=== PATIENT | female | born 1995 | race Caucasian/White ===

== ENCOUNTER 2020-12-07 20:14 | Inpatient (IN) | payer OTHER ==
[~2020-12-07] VITALS: Ht 160 cm; Wt 65.7 kg
[2020-12-07 20:34] VITALS: BP 120/71
[2020-12-07] MEDS ORDERED: OXYTOCIN DRIP 30 UNITS in IV 1 EA IV PRN (21:50)
[2020-12-07] MEDS ORDERED: LIDOCAINE 1% MDV 20ML VIAL INFIL PRN (21:50)
[2020-12-07] MEDS ORDERED: PRENTAB9 PO (22:07)
[2020-12-07 22:09] LABS: HEMATOCRIT 38.5 % (36.0-47.0); HEMOGLOBIN 12.9 g/dl (12.0-15.5); MEAN CORPUSCULAR HEMOGLOBIN 28.4 pg (27.0-33.0); MEAN CORPUSCULAR HGB CONC 33.5 g/dl (32.0-36.5); MEAN CORPUSCULAR VOLUME 84.6 fl (80.0-96.0); PLATELET COUNT, AUTOMATED 222 10^3/uL (150-450); RED BLOOD COUNT 4.55 10^6/uL (4.00-5.40); WHITE BLOOD COUNT 11.3 10^3/uL (4.0-10.0)
--- NOTE | 2020-12-07 22:11 | HPEPDOC ---
Obstetrical History & Physical General Date of Admission Dec 07, 2020 at 21:49 History of Present Illness 25 yo at 41+1 weeks gestation by LMP of [id number] c/w 10+5 week US present ed to L&D with the complaint of worsening contractions throughout today. She denies any vaginal bleeding or leakage of fluid. She endorses regular movement. She is scheduled for IOL tomorrow for late term . 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 ABDOMEN: Gravid and non-tender to touch. FETUS: Is vertex (VTX) by sterile vaginal examination (SVE), fetus is vertex (VTX) by Andrei. EXTREMITIES: No edema. Vital Signs/I&O Vital Signs Date Time Temp Pulse Resp B/P (MAP) Pulse Ox O2 Delivery O2 Flow Rate FiO2 12/07/20 20:34 98.4 78 20 120/71 (87) Laboratory Data 24H LABS Laboratory Tests 2 12/07/20 21:53: Serology Scanned Report Hepatitis B Testing Urine Culture: No Growth Pertinent Laboratoy Data Blood Type: A+ RBC Antibody Screen: Negative HIV: Negative Hepatitis B: Negative Hepatitis C: Unknown Rapid Plasma Reagin: Nonreactive Rubella: Immune Varicella: Immune Chlamydia/Gonorrhea: Negative Group B Streptococcus: Negative (Done on 21Oct2020) Quad Screen Test: Unknown Cystic Fibrosis: Negative Glucose Tolerance Test: 95 Anatomy Ultrasound Placenta Location: Anterior Normal Anatomy: Yes Placenta Previa: No Steroid Therapy Steroid Therapy: No Vaginal Examination Dilation: 2cm Effacement: 80% Station: -2 Cervical Consistency: Soft Cervical Position: Posterior Presentation: Cephalic presentation Position: Vertex (occiput) Assessment Heart Rate (FHR): 135 Variability: Moderate Accelerations: Positive Decelerations: None Tocometer Frequency: irregular Assessment/Plan Assessment 25 yo at 41+1 weeks gestation presented to L&D with the complaint of contractions. Scheduled for IOL tomorrow. Plan Admit for expectant management of early labor. Will not augment labor until nursing staff can safely do so. Apply IV fluids. Labs per L&D protocol. Regular diet. GBS negative, though swab completed >5 weeks ago. Recommend empiric treatment if risk factors become present. Patient may have epidural if desired. Anticipate . NANCY HURD DO Dec 07, 2020 22:11
[2020-12-08] VITALS (39 sets, daily range): BP systolic 70–209; BP diastolic 37–142
[2020-12-08] MEDS ORDERED: FENTANYL 2MCG/ML ROPIVACAINE 0.2% IN 0.9% NACL 100ML IVBAG As Ordered ONE (00:18)
[2020-12-08] MEDS ORDERED: ONDANSETRON 4MG/2ML VIAL As Ordered ONE (00:55)
[2020-12-08] MEDS ORDERED: LACTATED RINGER'S 1000 ML IV PRN (01:00)
[2020-12-08] MEDS ORDERED: ePHEDrine SULFATE 25 MG/5 ML(5MG/ML) SYRINGE IV PRN (01:00)
[2020-12-08] MEDS ORDERED: NALOXONE INJ 0.4MG/1ML VIAL (J2310 PER 1MG) IV PRN (01:00)
[2020-12-08] MEDS ORDERED: EPIDURAL/PCA KEYS XX PRN (01:00)
[2020-12-08] MEDS ORDERED: FENTANYL/ROPIVACAINE/NACL BAG 100 ML EPIDURAL SCH (01:00)
[2020-12-08] MEDS ORDERED: REFRIGERATOR IV KEYS XX PRN (01:00)
[2020-12-08] MEDS ORDERED: diphenhydrAMINE 50MG/ML VIAL (J1200) IV PRN (01:00)
[2020-12-08] MEDS ORDERED: ONDANSETRON 4MG/2ML VIAL IV PRN (01:00)
[2020-12-08] MEDS ORDERED: EPIDURAL COMMENT XX SCH (01:00)
[2020-12-08] MEDS ORDERED: ACETAMINOPHEN TAB 650MG DOSE (2X325MG) PO PRN (06:25)
[2020-12-08] MEDS ORDERED: ACETAMINOPHEN 500 MG TAB PO PRN (06:25)
[2020-12-08] MEDS ORDERED: PROMETHAZINE 25 MG TAB PO PRN (06:25)
[2020-12-08] MEDS ORDERED: RHOGAM 300 MCG (1500 IU) INJ (J2790) IM SCH (06:25)
[2020-12-08] MEDS ORDERED: IBUPROFEN 800 MG TAB PO PRN (06:25)
[2020-12-08] MEDS ORDERED: MEASLES,MUMPS,RUBELLA VACCINE INJ (MMR-II) (90707) SC SCH (06:25)
[2020-12-08] MEDS ORDERED: DOCUSATE SODIUM 100MG CAPSULE PO PRN (06:25)
[2020-12-08] MEDS ORDERED: IBUPROFEN 600MG TAB PO PRN (06:25)
[2020-12-08] MEDS ORDERED: DIBUCAINE 1% OINTMENT 30GM TOP PRN (06:25)
--- NOTE | 2020-12-08 06:37 | DNPDOC ---
[facility] Delivery Note Delivery Note DATE OF DELIVERY: 08Dec2020 at ~0615 PREDELIVERY DIAGNOSIS: 41+2 weeks gestation and labor POST DELIVERY DIAGNOSIS: Delivered. PROCEDURE: Spontaneous vaginal delivery WATER RESOURCE MANAGER: Dr. Jacobs ANESTHESIA: Neuraxial (epidural). ESTIMATED BLOOD LOSS: 300 mL. FINDINGS: 6 pound 5 ounce (2870 grams) female , Score 8/9 DELIVERY SUMMARY: Mike is a 25 yo who presented with painful contractions the night before her scheduled induction. She received an epidural and had pitocin augmentation. Her membranes spontaneously ruptured and she progressed into 2nd stage. I was called to the room for delivery. With excellent pushing effort after only about 10 minutes of pushing her infant delivered. Presentation was SANDEE with restitution to LOT. The right anterior shoulder delivered quickly followed easily by the remainder of the body. Terminal meconium noted with delivery. The was dried and stimulated on the field and a bulb suction was used. The cried vigorously and was placed on the maternal abdomen. 3rd stage was completed with gentle traction on the 3V cord and it was productive of an intact placenta. The uterus was firmed with massage and pitocin was administered IV bolus. Inspection of the vagina, labia, cervix, and perineum revealed bilateral labial lacerations. These were repaired with 3- 0 vicryl suture in the usual fashion. There was excellent cosmesis and hemostasis after the repairs. The fundus was palpated again and was firm. Sponge, instrument, and needle counts correct X2. Mother and infant stable when I left the room. DO VICKEY Stewart CHRISTOPHER J. DO Dec 08, 2020 06:37
[2020-12-08] MEDS: PRENATAL VITAMINS CHEWABLE TABLET PO SCH (08:59)
[2020-12-09 06:00] VITALS: BP 111/57
--- NOTE | 2020-12-09 07:48 | IPNPDOC ---
Progress Note Date of Service: Dec 09, 2020 Day#: 1 Progress Note SUBJECT: Mike is a 25 yo who presented with painful contractions the nig ht before her scheduled induction and proceeded to have an uncomplicated vaginal delivery, 6 pound 5 ounce (2870 grams) female infant, Score 8/9. She has been ambulating, voiding spontaneously without issue and tolerating regular diet. Breast feeding without issue. Reports lochia is less than a normal period. Patient is ambulating well. Reports some cramping with . Denies any pain. Voiding and stooling without difficulty. APC 1. anemia OBJECTIVE: VITAL SIGNS: Within normal limits, afebrile. Alert and oriented times three. No increased WOB Non-tachycardic Abdomen: Fundus firm at U-2. Soft, NTTP. Minimal lochia per patient ASSESSMENT: Mike is a 25 yo who presented with painful contractions the night before her scheduled induction and proceeded to have an uncomplicated vaginal delivery, 6 pound 5 ounce (2870 grams) female infant, Score 8/9. Vitals within normal limits, afebrile, hemodynamically stable with no evidence of infection. PLAN: 1. Discharge to home likely tomorrow 2. Tylenol and Motrin for pain. 3. Encourage breast feeding and ambulation. 4. Plans on condoms for contraception, educated on risk of close interval . 5. Routine PP visit in 6 weeks in clinic. 6. Discussed return precautions at length to include pelvic rest. VS, I&O, 24H, Fishbone Vital Signs/I&O Vital Signs Date Time Temp Pulse Resp B/P (MAP) Pulse Ox O2 Delivery O2 Flow Rate FiO2 12/09/20 06:00 98.4 98 14 111/57 (75) 99 Room Air I&O- Last 24 Hours up to 6 AM 12/09/20 06:00 Intake Total 1940 ml Output Total 950 ml Balance 990 ml FARIBA MAHMOOD DO Dec 09, 2020 07:48
[2020-12-09] MEDS: PRENATAL VITAMINS CHEWABLE TABLET PO SCH (09:13)
[2020-12-09 18:16] VITALS: BP 111/61
[2020-12-10 06:00] VITALS: BP 115/64
--- NOTE | 2020-12-10 06:39 | IPNPDOC ---
Progress Note Date of Service: Dec 10, 2020 Day#: 2 Progress Note SUBJECT: Mike is a 25 yo PPD2 who presented with painful contractions the night before her scheduled induction and proceeded to have an uncomplicated vaginal delivery, 6 pound 5 ounce (2870 grams) female infant, Score 8/9. She has been ambulating, voiding spontaneously without issue and tolerating regular diet. Breast feeding without issue. Reports lochia is less than a normal period. Patient is ambulating well. Reports some cramping with . Denies any pain. Voiding and stooling without difficulty. APC 1. anemia OBJECTIVE: VITAL SIGNS: Within normal limits, afebrile. Alert and oriented times three. No increased WOB Non-tachycardic Abdomen: Fundus firm at U-2. Soft, NTTP. Minimal lochia per patient ASSESSMENT: Mike is a 25 yo PPD 2 who presented with painful contractions the night before her scheduled induction and proceeded to have an uncomplicated vaginal delivery, 6 pound 5 ounce (2870 grams) female , Score 8/9. Vitals within normal limits, afebrile, hemodynamically stable with no evidence of infection. PLAN: 1. Discharge to home likely tomorrow 2. Tylenol and Motrin for pain. 3. Encourage breast feeding and ambulation. 4. Plans on condoms for contraception, educated on risk of close interval . 5. Routine PP visit in 6 weeks in clinic. 6. Discussed return precautions at length to include pelvic rest. VS, I&O, 24H, Fishbone Vital Signs/I&O Vital Signs Date Time Temp Pulse Resp B/P (MAP) Pulse Ox O2 Delivery O2 Flow Rate FiO2 12/10/20 06:00 99.0 99 18 115/64 (81) 98 Room Air FARIBA MAHMOOD DO Dec 10, 2020 06:39
--- NOTE | 2020-12-10 06:40 | OBDS ---
[facility] Obstetrical Discharge Sum. A/P, Post Course List any complications Mike is a 25 yo who presented with painful contractions the night before her scheduled induction and proceeded to have an uncomplicated vaginal delivery, 6 pound 5 ounce (2870 grams) female infant, Score 8/9. She has been ambulating, voiding spontaneously without issue and tolerating regular diet. Breast feeding without issue. Reports lochia is less than a normal period. P atient is ambulating well. Reports some cramping with . Denies any pain. Voiding and stooling without difficulty. Vitals within normal limits, afebrile, hemodynamically stable with no evidence of infection. APC 1. anemia PLAN: 1. Discharge to home today. 2. Tylenol and Motrin for pain. 3. Encourage breast feeding and ambulation. 4. Plans on condoms for contraception, educated on risk of close interval . 5. Routine visit in 6 weeks in clinic. 6. Discussed return precautions at length to include pelvic rest. FARIBA MAHMOOD DO Dec 10, 2020 06:40
[2020-12-10] MEDS: PRENATAL VITAMINS CHEWABLE TABLET PO SCH (08:24)
== END 2020-12-10 10:35 | disposition home or self-care (01) | DRG 807 ==
LOC: M LDO 20:14 → M LDI 21:49 → M OBS 12-08 14:49
PROVIDERS: ADMIT Obstetrics & Gynecology; ATTEND Obstetrics & Gynecology
PROC: 10E0XZZ Delivery of Products of Conception, External Approach (ICD-10-PCS; principal; 2020-12-08)
PROC: 0HQ9XZZ Repair Perineum Skin, External Approach (ICD-10-PCS; 2020-12-08)
DX: O48.0 Post-term pregnancy (principal); Z37.0 Single live birth; Z3A.41 41 weeks gestation of pregnancy; O70.0 First degree perineal laceration during delivery; O99.02 Anemia complicating childbirth; D64.9 Anemia, unspecified